=== PATIENT | female | born 1955 | race Caucasian/White ===

== ENCOUNTER 2018-05-22 00:51 | Outpatient (CLI) | payer MEDICAID ==
[~2018-05-22 00:51] MED LIST: ASPI-611 PO; LEVO75TA PO; LORA10TA65 PO; LOSA25TA96 PO
== END 2018-05-22 23:59 | disposition home or self-care (01) ==
LOC: DIABETIC 00:51
PROVIDERS: ATTEND Physician Assistant
DX: E11.9 Type 2 diabetes mellitus without complications (principal)
CPT/HCPCS: G0108

== ENCOUNTER 2018-06-05 02:47 | Outpatient (CLI) | payer MEDICARE, MEDICAID | END 2018-06-05 23:59 | disposition home or self-care (01) | LOC: DIABETIC 02:47 | PROVIDERS: ATTEND Physician Assistant | DX: E11.65 Type 2 diabetes mellitus with hyperglycemia (principal); I10 Essential (primary) hypertension; Z79.82 Long term (current) use of aspirin | CPT/HCPCS: G0108 ==

== ENCOUNTER 2018-06-29 03:14 | Outpatient (CLI) | payer MEDICARE, MEDICAID | END 2018-06-29 23:59 | disposition home or self-care (01) | LOC: DIABETIC 03:14 | PROVIDERS: ATTEND Physician Assistant | DX: E11.65 Type 2 diabetes mellitus with hyperglycemia (principal); I10 Essential (primary) hypertension; Z79.82 Long term (current) use of aspirin; Z85.828 Personal history of other malignant neoplasm of skin | CPT/HCPCS: G0108 ==

== ENCOUNTER 2018-10-02 03:58 | Outpatient (CLI) | payer MEDICARE, MEDICAID | END 2018-10-02 23:59 | disposition home or self-care (01) | LOC: DIABETIC 03:58 | PROVIDERS: ATTEND Internal Medicine Endocrinology, Diabetes & Metabolism | DX: E10.65 Type 1 diabetes mellitus with hyperglycemia (principal); I10 Essential (primary) hypertension; Z79.82 Long term (current) use of aspirin; Z79.4 Long term (current) use of insulin | CPT/HCPCS: G0108 ==

== ENCOUNTER 2019-01-03 01:17 | Outpatient (CLI) | payer MEDICARE, MEDICAID | END 2019-01-03 23:59 | disposition home or self-care (01) | LOC: DIABETIC 01:17 | PROVIDERS: ATTEND Internal Medicine Endocrinology, Diabetes & Metabolism | DX: E10.9 Type 1 diabetes mellitus without complications (principal); I10 Essential (primary) hypertension; Z88.6 Allergy status to analgesic agent | CPT/HCPCS: G0108 ==

== ENCOUNTER 2019-04-04 02:03 | Outpatient (CLI) | payer MEDICARE, MEDICAID | END 2019-04-04 23:59 | disposition home or self-care (01) | LOC: DIABETIC 02:03 | PROVIDERS: ATTEND Internal Medicine Endocrinology, Diabetes & Metabolism | DX: E10.65 Type 1 diabetes mellitus with hyperglycemia (principal); I10 Essential (primary) hypertension; Z79.4 Long term (current) use of insulin | CPT/HCPCS: G0108 ==

== ENCOUNTER 2019-07-04 01:06 | Outpatient (CLI) | payer MEDICARE, MEDICAID | END 2019-07-04 23:59 | disposition home or self-care (01) | LOC: DIABETIC 01:06 | PROVIDERS: ATTEND Internal Medicine Endocrinology, Diabetes & Metabolism | DX: E10.65 Type 1 diabetes mellitus with hyperglycemia (principal); I10 Essential (primary) hypertension; Z79.4 Long term (current) use of insulin | CPT/HCPCS: G0108 ==

== ENCOUNTER 2019-11-25 01:27 | Emergency (ER) | payer MEDICARE, MEDICAID ==
[~2019-11-25] VITALS: Ht 157.5 cm; Wt 65.5 kg
[2019-11-25] MEDS ORDERED: epiNEPHrine 1 mg/ml inj SQ STA (01:43)
[2019-11-25] MEDS ORDERED: predniSONE 20 mg tablet PO ONE (01:45)
[2019-11-25] MEDS ORDERED: hydrOXYzine 25 MG tablet PO ONE (01:45)
[2019-11-25] MEDS ORDERED: PRED20TA PO (02:44)
[2019-11-25 03:08] VITALS: BP 120/50
[2019-11-26] MEDS ORDERED: HYDR-3686 PO (01:53)
== END 2019-11-25 03:11 | disposition home or self-care (01) ==
LOC: ER 01:27
DX: T78.40XA Allergy, unspecified, initial encounter (principal); L50.9 Urticaria, unspecified; I10 Essential (primary) hypertension; F10.99 Alcohol use, unspecified with unspecified alcohol-induced disorder; Y90.9 Presence of alcohol in blood, level not specified; Z88.6 Allergy status to analgesic agent; Z79.82 Long term (current) use of aspirin; Z79.899 Other long term (current) drug therapy; X58.XXXA Exposure to other specified factors, initial encounter
CPT/HCPCS: 82948; 96372; 99283; J0171; J7512; Z7610

== ENCOUNTER 2019-11-26 00:58 | Emergency (ER) | payer MEDICARE, MEDICAID ==
[~2019-11-26] VITALS: Ht 156.2 cm; Wt 65.5 kg
[~2019-11-26 00:58] MED LIST changes: +PRED20TA PO
[2019-11-26 01:02] VITALS: BP 148/74
[2019-11-26] MEDS ORDERED: epiNEPHrine 1 mg/ml inj IM STA (01:19)
[2019-11-26] MEDS ORDERED: HYDR-3686 PO (01:53)
== END 2019-11-26 02:04 | disposition home or self-care (01) ==
LOC: ER 00:58
DX: R21 Rash and other nonspecific skin eruption (principal); T78.40XA Allergy, unspecified, initial encounter; I10 Essential (primary) hypertension; Z88.6 Allergy status to analgesic agent; Z79.82 Long term (current) use of aspirin; Z79.899 Other long term (current) drug therapy; Y92.89 Other specified places as the place of occurrence of the external cause
CPT/HCPCS: 96372; 99283; J0171

== ENCOUNTER 2019-11-27 01:57 | Emergency (ER) | payer MEDICARE, MEDICAID ==
[~2019-11-27] VITALS: Ht 154.9 cm; Wt 65.5 kg
[~2019-11-27 01:57] MED LIST changes: +HYDR-3686 PO
[2019-11-27] MEDS ORDERED: methylPREDNISolone sod succ 125mg/2ml vial IM ONE (02:05)
[2019-11-27] MEDS ORDERED: diphenhydrAMINE 25mg capsule PO ONE (02:05)
[2019-11-27 02:16] VITALS: BP 153/62
== END 2019-11-27 02:18 | disposition home or self-care (01) ==
LOC: ER 01:58
DX: L50.8 Other urticaria (principal); T78.40XA Allergy, unspecified, initial encounter; I10 Essential (primary) hypertension; Z88.1 Allergy status to other antibiotic agents; Z88.6 Allergy status to analgesic agent; Z79.82 Long term (current) use of aspirin; Z79.899 Other long term (current) drug therapy; Y92.89 Other specified places as the place of occurrence of the external cause
CPT/HCPCS: 96372; 99283; J2930; Q0163

== ENCOUNTER 2020-12-19 10:53 | Emergency (ER) | payer MEDICARE, MEDICAID ==
[~2020-12-19] VITALS: Ht 154.9 cm; Wt 70.0 kg
[~2020-12-19 10:53] MED LIST changes: -HYDR-3686 PO; -PRED20TA PO
== END 2020-12-19 12:31 | disposition home or self-care (01) ==
LOC: ER 10:54
DX: R53.83 Other fatigue (principal); I10 Essential (primary) hypertension; Z20.822 Contact with and (suspected) exposure to COVID-19; Z85.9 Personal history of malignant neoplasm, unspecified; Z72.89 Other problems related to lifestyle; Z88.1 Allergy status to other antibiotic agents; Z88.6 Allergy status to analgesic agent; Z79.82 Long term (current) use of aspirin; Z79.899 Other long term (current) drug therapy
CPT/HCPCS: 36415; 87635; 99283

== ENCOUNTER 2022-01-01 06:35 | Emergency (ER) | payer MEDICARE, MEDICAID ==
[~2022-01-01] VITALS: Ht 154.9 cm; Wt 65.5 kg
[2022-01-01] MEDS ORDERED: morphine 4 MG/ML inj SYRINge IV PRN (07:10)
[2022-01-01] MEDS ORDERED: normal saline 1000ML IV soln IVB ONE (07:10)
[2022-01-01] MEDS ORDERED: ondansetron/PF 4mg/2ml inj IV ONE (07:10)
[2022-01-01 07:16] LABS: BASOPHILS % (AUTO) 0.7 % (0-1); EOSINOPHILS # (AUTO) 0.1 X10'3 (0-0.9); HEMATOCRIT 39.2 % (35.0-45.0); HEMOGLOBIN 12.9 g/dl (12.0-16.0); LYMPHOCYTES # (AUTO) 1.3 X10'3 (1.1-4.8); LYMPHOCYTES % (AUTO) 20.7 % (21-51); MEAN CORPUSCULAR HEMOGLOBIN 29.6 PG (27.0-31.0); MEAN CORPUSCULAR VOLUME 89.6 FL (78-98); MEAN PLATELET VOLUME 8.1 FL (7.4-10.4); MONOCYTES # (AUTO) 0.5 X10'3 (0-0.9); NEUTROPHILS # (AUTO) 4.3 X10'3 (1.8-7.7); NEUTROPHILS % (AUTO) 69.6 % (42-75); PLATELET COUNT 246 X10'3 (140-440); RED BLOOD COUNT 4.38 X10'6 (4.20-5.60); RED CELL DISTRIBUTION WIDTH 13.4 % (11.5-14.5); WHITE BLOOD COUNT 6.1 X10'3 (4.5-11.0)
[2022-01-01 07:34] LABS: ALANINE AMINOTRANSFERASE 25 U/L (12-78); ALBUMIN 3.4 G/DL (3.4-5.0); ALBUMIN/GLOBULIN RATIO 0.9 (1.1-1.5); ALKALINE PHOSPHATASE 53 IU/L (46-116); ANION GAP 8 (8-16); ASPARTATE AMINO TRANSFERASE 18 U/L (10-37); BILIRUBIN,TOTAL 0.5 MG/DL (0.1-1.0); BLOOD UREA NITROGEN 9 MG/DL (7-18); CALCIUM 8.3 MG/DL (8.5-10.1); CHLORIDE 105 MMOL/L (99-107); GLUCOSE 211 MG/DL (70-104); LIPASE 59 U/L (73-393); SODIUM 141 MMOL/L (135-145); TOTAL CARBON DIOXIDE 28.4 MMOL/L (24-32); eGFR 62 ML/MIN
[2022-01-01 08:30] LABS: CLARITY,URINE CLOUDY (Clear); COLOR,URINE YELLOW (Yellow); GLUCOSE, URINE NEGATIVE (Neg); KETONES,URINE 15 mg/dl (Neg); LEUKOCYTE ESTERASE ,URINE MODERATE (Neg); NITRITES, URINE POSITIVE (Neg); OCCULT BLOOD,URINE SMALL (Neg); PROTEIN,URINE NEGATIVE (Neg); UROBILINOGEN,URINE 0.2 E.U/dL (0.2-1.0)
[2022-01-01 08:33] LABS: UA COLLECTION TYPE CLN CATCH MIDSTREAM
[2022-01-01 08:37] LABS: BACTERIA,URINE 3+ /HPF (Neg); SQUAMOUS EPITHELIAL CELL,UR FEW /LPF (FEW); WBC CLUMPS,URINE MANY /HPF (NEGATIVE); WBC,URINE TNTC /HPF (0-4)
[2022-01-01 08:38] LABS: MUCUS STRANDS FEW /LPF (Neg); RBC,URINE 0-2 /HPF (0-2)
[2022-01-01 09:07] VITALS: BP 127/64
[2022-01-01] MEDS ORDERED: acetaminophen 325mg tablet PO ONE (11:10)
[2022-01-01] MEDS ORDERED: SULF1TAB49 PO (11:10)
[2022-01-01] MEDS ORDERED: sulfamethoxazole/trimethoprim DS (800/160mg) tablet PO ONE (11:10)
[2022-01-11 17:27] LABS: OCCULT BLOOD STOOL POSITIVE (Neg)
== END 2022-01-01 11:30 | disposition home or self-care (01) ==
LOC: ER 06:36
DX: R10.32 Left lower quadrant pain (principal); K62.5 Hemorrhage of anus and rectum; Z85.820 Personal history of malignant melanoma of skin; I10 Essential (primary) hypertension; Z87.01 Personal history of pneumonia (recurrent); Z87.891 Personal history of nicotine dependence; Z72.89 Other problems related to lifestyle; Z88.1 Allergy status to other antibiotic agents; Z88.8 Allergy status to other drugs, medicaments and biological substances; Z79.82 Long term (current) use of aspirin; Z79.899 Other long term (current) drug therapy
CPT/HCPCS: 36415; 74176; 80053; 81001; 83605; 83690; 84484; 85025; 86885; 86900; 86901; 87077; 87088; 87186; 96361; 96374; 99284; J2405; J7030; 82272

== ENCOUNTER 2022-01-01 14:16 | Emergency (ER) | payer MEDICARE, MEDICAID ==
[~2022-01-01] VITALS: Ht 154.9 cm; Wt 65.4 kg
[~2022-01-01 14:16] MED LIST changes: +SULF1TAB49 PO
[2022-01-01 14:54] VITALS: BP 122/67
== END 2022-01-01 17:05 | disposition left against medical advice (07) ==
LOC: ER 14:17
DX: K62.5 Hemorrhage of anus and rectum (principal); Z53.21 Procedure and treatment not carried out due to patient leaving prior to being seen by health care provider

== ENCOUNTER 2022-01-02 20:54 | Inpatient (IN) | payer MEDICARE, MEDICAID ==
[~2022-01-02] VITALS: Ht 154.9 cm; Wt 65.5 kg
[2022-01-02] MEDS ORDERED: ondansetron/PF 4mg/2ml inj IV ONE (21:40)
[2022-01-02] MEDS ORDERED: normal saline 1000ml 1,000 ML IV ONE (21:40)
[2022-01-02 22:04] LABS: BASOPHILS % (AUTO) 0.4 % (0-1); EOSINOPHILS % (AUTO) 0.1 % (0-6); HEMATOCRIT 35.7 % (35.0-45.0); HEMOGLOBIN 11.8 g/dl (12.0-16.0); LYMPHOCYTES # (AUTO) 0.3 X10'3 (1.1-4.8); LYMPHOCYTES % (AUTO) 4.8 % (21-51); MEAN CORPUSCULAR HEMOGLOBIN 29.9 PG (27.0-31.0); MEAN CORPUSCULAR HGB CONC 33.1 g/dL (33.0-36.5); MEAN CORPUSCULAR VOLUME 90.1 FL (78-98); MEAN PLATELET VOLUME 8.5 FL (7.4-10.4); MONOCYTES # (AUTO) 0.6 X10'3 (0-0.9); MONOCYTES % (AUTO) 8.9 % (2-12); NEUTROPHILS # (AUTO) 5.9 X10'3 (1.8-7.7); NEUTROPHILS % (AUTO) 85.8 % (42-75); PLATELET COUNT 152 X10'3 (140-440); RED BLOOD COUNT 3.96 X10'6 (4.20-5.60); RED CELL DISTRIBUTION WIDTH 13.3 % (11.5-14.5); WHITE BLOOD COUNT 6.9 X10'3 (4.5-11.0)
[2022-01-02 22:16] LABS: ALANINE AMINOTRANSFERASE 102 U/L (12-78); ALBUMIN 2.8 G/DL (3.4-5.0); ALBUMIN/GLOBULIN RATIO 0.8 (1.1-1.5); ALKALINE PHOSPHATASE 59 IU/L (46-116); ANION GAP 13 (8-16); ASPARTATE AMINO TRANSFERASE 120 U/L (10-37); BILIRUBIN,TOTAL 0.6 MG/DL (0.1-1.0); BLOOD UREA NITROGEN 13 MG/DL (7-18); BUN/CREATININE RATIO 8.2 (6.6-38.0); CALCIUM 8.4 MG/DL (8.5-10.1); CHLORIDE 98 MMOL/L (99-107); CREATININE 1.59 MG/DL (0.40-0.90); GLUCOSE 242 MG/DL (70-104); POTASSIUM 3.7 MMOL/L (3.5-5.1); SODIUM 131 MMOL/L (135-145); TOTAL CARBON DIOXIDE 20.1 MMOL/L (24-32); TOTAL PROTEIN 6.2 G/DL (6.4-8.2); eGFR 32 ML/MIN
[2022-01-02 22:43] LABS: LIPASE 59 U/L (73-393)
[2022-01-02] MEDS ORDERED: ciprofloxacin lact 400MG/200ML 200 ML IV STA (22:59)
[2022-01-02] MEDS ORDERED: potassium Cl 20 mEq SR tablet PO PRN ×2 (23:15)
[2022-01-02] MEDS ORDERED: potassium CL 10mEq/100ml bag 100 ML IV PRN (23:15)
[2022-01-02] MEDS ORDERED: magnesium Cl slow-release 64mg tablet PO PRN (23:15)
[2022-01-02] MEDS ORDERED: metoclopramide 5 mg/ml inj IV PRN (23:15)
[2022-01-02] MEDS ORDERED: magnesium hydroxide 30ml (MOM) UD suspension PO PRN (23:15)
[2022-01-02] MEDS ORDERED: mag hydrox/Alum hydrox/simeth 30ml oral suspension PO PRN (23:15)
[2022-01-02] MEDS ORDERED: ondansetron/PF 4mg/2ml inj IV PRN (23:15)
[2022-01-02] MEDS ORDERED: morphine 2 MG/ML inj. syringe IV PRN (23:15)
[2022-01-02] MEDS ORDERED: magnesium 2GM in 50ml NS 50 ML IV PRN (23:15)
[2022-01-02] MEDS ORDERED: acetaminophen 325mg tablet PO PRN (23:15)
[2022-01-02] MEDS ORDERED: magnesium 4gm in 100ml NS 100 ML IV PRN (23:15)
[2022-01-02 23:38] LABS: MAGNESIUM 1.7 MG/DL (1.5-2.4)
[2022-01-03] MEDS ORDERED: MESSAGE TO PHARMACY PO ONE (00:25)
[2022-01-03] MEDS ORDERED: glucagon, human recombinant 1mg kit SUBCUT PRN (00:25)
[2022-01-03] MEDS ORDERED: dextrose 50%-water 50ml dispensing syringe IV PRN ×2 (00:25)
[2022-01-03] MEDS ORDERED: DEXTROSE 15 GM of carb/4 tabs (each vial/BOTTLE has 4 tablets) PO PRN ×2 (00:25)
[2022-01-03] MEDS: morphine 2 MG/ML inj. syringe IV PRN ×4 (01:44→22:18)
[2022-01-03] MEDS ORDERED: insulin Lispro (HumaLOG) vial - multi-dose SQ ONE (02:00)
[2022-01-03] MEDS: sodium chloride 0.45% 1,000 ML IV SCH ×3 (02:19→16:26)
[2022-01-03 04:26] LABS: ALANINE AMINOTRANSFERASE 86 U/L (12-78); ALBUMIN 2.4 G/DL (3.4-5.0); ALBUMIN/GLOBULIN RATIO 0.7 (1.1-1.5); ALKALINE PHOSPHATASE 56 IU/L (46-116); ANION GAP 12 (8-16); ASPARTATE AMINO TRANSFERASE 82 U/L (10-37); BILIRUBIN,TOTAL 0.4 MG/DL (0.1-1.0); BLOOD UREA NITROGEN 9 MG/DL (7-18); BUN/CREATININE RATIO 7.3 (6.6-38.0); CALCIUM 7.6 MG/DL (8.5-10.1); CHLORIDE 103 MMOL/L (99-107); CREATININE 1.24 MG/DL (0.40-0.90); GLUCOSE 193 MG/DL (70-104); POTASSIUM 3.7 MMOL/L (3.5-5.1); SODIUM 134 MMOL/L (135-145); TOTAL CARBON DIOXIDE 19.5 MMOL/L (24-32); TOTAL PROTEIN 5.7 G/DL (6.4-8.2); eGFR 43 ML/MIN
[2022-01-03 04:30] LABS: MAGNESIUM 1.8 MG/DL (1.5-2.4)
[2022-01-03 06:07] LABS: CLARITY,URINE CLEAR (Clear); COLOR,URINE YELLOW (Yellow); GLUCOSE, URINE 500 mg/dl (Neg); KETONES,URINE >=80 mg/dl (Neg); LEUKOCYTE ESTERASE ,URINE NEGATIVE (Neg); NITRITES, URINE NEGATIVE (Neg); OCCULT BLOOD,URINE TRACE-INTACT (Neg); PH,URINE 5.5 (4.8-8.0); PROTEIN,URINE NEGATIVE (Neg); UA COLLECTION TYPE CLN CATCH MIDSTREAM; UROBILINOGEN,URINE 0.2 E.U/dL (0.2-1.0)
[2022-01-03 06:15] LABS: SQUAMOUS EPITHELIAL CELL,UR FEW /LPF (FEW)
[2022-01-03 06:18] LABS: BACTERIA,URINE FEW /HPF (Neg); RBC,URINE 0-2 /HPF (0-2)
[2022-01-03] MEDS: levoTHYROXINE 75mcg tablet PO SCH (07:11)
--- NOTE | 2022-01-03 07:13 | NUR ---
pt asking for something to drink. gave her glass of water with her synthroid.
[2022-01-03 07:20] LABS: BASOPHILS % (AUTO) 0.2 % (0-1); EOSINOPHILS % (AUTO) 0.4 % (0-6); HEMATOCRIT 34.8 % (35.0-45.0); HEMOGLOBIN 11.6 g/dl (12.0-16.0); LYMPHOCYTES # (AUTO) 0.4 X10'3 (1.1-4.8); LYMPHOCYTES % (AUTO) 6.8 % (21-51); MEAN CORPUSCULAR HEMOGLOBIN 29.7 PG (27.0-31.0); MEAN CORPUSCULAR HGB CONC 33.3 g/dL (33.0-36.5); MEAN CORPUSCULAR VOLUME 89.2 FL (78-98); MEAN PLATELET VOLUME 8.3 FL (7.4-10.4); MONOCYTES # (AUTO) 0.6 X10'3 (0-0.9); MONOCYTES % (AUTO) 10.6 % (2-12); NEUTROPHILS # (AUTO) 4.6 X10'3 (1.8-7.7); PLATELET COUNT 141 X10'3 (140-440); RED CELL DISTRIBUTION WIDTH 13.5 % (11.5-14.5); WHITE BLOOD COUNT 5.7 X10'3 (4.5-11.0)
[2022-01-03] MEDS: K and/or MAG REPLACEMENT MC SCH ×2 (08:00→20:00)
[2022-01-03] MEDS: losartan 25mg tablet PO SCH (08:20)
[2022-01-03] MEDS: loratadine 10mg tablet PO SCH (08:20)
[2022-01-03] MEDS: docusate sod 100mg capsule PO SCH ×2 (08:20→20:42)
[2022-01-03] MEDS: metroNIDAZOLE-Flagyl 500mg/NS 100 ML IV SCH ×2 (08:23→16:26)
--- NOTE | 2022-01-03 08:50 | NUR ---
gave report to julia martinez.
[2022-01-03] MEDS: ciprofloxacin lact 400MG/200ML 200 ML IV SCH ×2 (08:57→20:42)
[2022-01-03 09:24] LABS: HEMOGLOBIN A1C 8.1 % (4.5-6.2)
--- NOTE | 2022-01-03 09:35 | NUR ---
PT. TO ROOM 319A. PT. C/O OF SOME BACK PAIN BUT RECENTLY RECEIVED MS. REPOSITIONED PT. IN BED. AMBULATION TELE MONITOR PUT ON PT. UNTIL REPLACEMENT TELE COULD BE PLACED. BED LOW TO GROUND. PT. PROVIDED WITH WARM BLANKET. NO NEEDS AT THIS TIME.
[2022-01-03 10:00] VITALS: BP 108/46
--- NOTE | 2022-01-03 11:53 | NUR ---
PAGER ID: [phone] MESSAGE: Shannan Irene 319A Pt. requesting to be tested for COVID r/t temp, body aches, nausea, vomiting, diarrhea, and she is not vaccinated. Do you want to test her? Wendy [phone]
--- NOTE | 2022-01-03 11:56 | NUR ---
PAGER ID: [phone] MESSAGE: Shannan Irene 319A Pt. also wants to know why she has NPO diet? Wendy [phone]
[2022-01-03] MEDS ORDERED: LOVA40TA2 PO (12:23)
[2022-01-03] MEDS ORDERED: LEVO75TA7 PO (12:23)
[2022-01-03] MEDS ORDERED: LANTUS SQ (12:23)
[2022-01-03] MEDS ORDERED: LOSA25TA41 PO (12:23)
[2022-01-03] MEDS ORDERED: PRE5T PO (12:23)
[2022-01-03] MEDS ORDERED: CHOL20002 PO (12:23)
[2022-01-03] MEDS ORDERED: INSU100I52 SQ (12:23)
--- NOTE | 2022-01-03 12:41 | NUR ---
PAGER ID: [phone] MESSAGE: linsey Irene 319A Critical value: 12 hour trop positive at 66. Wendy [id number]
[2022-01-03] MEDS: insulin Lispro (HumaLOG) vial - multi-dose SQ SCH (14:02)
[2022-01-03 15:16] VITALS: BP 92/48
--- NOTE | 2022-01-03 15:21 | NUR ---
PAGER ID: [phone] MESSAGE: MARCO A DEWEY 319A NO ANTICOAG ON BOARD. YOU WANT ONE? ALSO PT. BP 92/48 hr 93. wANT LACTIC AND PROCAL? Lala [phone]
--- NOTE | 2022-01-03 16:44 | NUR ---
PAGER ID: [phone] MESSAGE: Shannan johns 319a bp still MAP 52, no bolus? Wendy [id number]
--- NOTE | 2022-01-03 16:45 | NUR ---
Hospitalist called back. Increasing fluids to 125ml /hr
[2022-01-03 18:00] VITALS: BP 96/33
--- NOTE | 2022-01-03 18:27 | NUR ---
Patient in room MED 319. I have received report from julia Nguyen and had the opportunity to ask questions and assume patient care.
--- NOTE | 2022-01-03 18:29 | NUR ---
Gave report to Anne RECINOS.
[2022-01-03] MEDS ORDERED: insulin glargine (Lantus) pen - multi-dose SQ SCH (21:00)
[2022-01-03 22:00] VITALS: BP 94/35
[2022-01-03 23:17] VITALS: BP 108/41
[2022-01-04] MEDS: metroNIDAZOLE-Flagyl 500mg/NS 100 ML IV SCH ×2 (00:03→10:11)
[2022-01-04 02:00] VITALS: BP 112/38
[2022-01-04] MEDS: morphine 2 MG/ML inj. syringe IV PRN ×2 (02:11→06:52)
[2022-01-04] MEDS: sodium chloride 0.45% 1,000 ML IV SCH (02:11)
[2022-01-04 06:00] VITALS: BP 109/40
--- NOTE | 2022-01-04 06:25 | NUR ---
Problems reprioritized. Patient report given, questions answered & plan of care reviewed with JORJE THURMAN.
[2022-01-04 06:28] LABS: ALANINE AMINOTRANSFERASE 58 U/L (12-78); ALBUMIN 2.2 G/DL (3.4-5.0); ALBUMIN/GLOBULIN RATIO 0.7 (1.1-1.5); ALKALINE PHOSPHATASE 47 IU/L (46-116); ANION GAP 11 (8-16); ASPARTATE AMINO TRANSFERASE 53 U/L (10-37); BILIRUBIN,TOTAL 0.4 MG/DL (0.1-1.0); BLOOD UREA NITROGEN 6 MG/DL (7-18); BUN/CREATININE RATIO 6.9 (6.6-38.0); CALCIUM 7.2 MG/DL (8.5-10.1); CHLORIDE 100 MMOL/L (99-107); CREATININE 0.87 MG/DL (0.40-0.90); GLUCOSE 184 MG/DL (70-104); MAGNESIUM 1.6 MG/DL (1.5-2.4); POTASSIUM 3.9 MMOL/L (3.5-5.1); SODIUM 129 MMOL/L (135-145); TOTAL CARBON DIOXIDE 17.7 MMOL/L (24-32); TOTAL PROTEIN 5.2 G/DL (6.4-8.2); eGFR 65 ML/MIN
[2022-01-04 06:33] LABS: BASOPHILS % (AUTO) 0.4 % (0-1); EOSINOPHILS # (AUTO) 0.2 X10'3 (0-0.9); EOSINOPHILS % (AUTO) 5.8 % (0-6); HEMATOCRIT 31.5 % (35.0-45.0); HEMOGLOBIN 10.4 g/dl (12.0-16.0); LYMPHOCYTES # (AUTO) 0.4 X10'3 (1.1-4.8); LYMPHOCYTES % (AUTO) 10.1 % (21-51); MEAN CORPUSCULAR HEMOGLOBIN 29.7 PG (27.0-31.0); MEAN CORPUSCULAR VOLUME 89.9 FL (78-98); MEAN PLATELET VOLUME 8.4 FL (7.4-10.4); MONOCYTES # (AUTO) 0.5 X10'3 (0-0.9); MONOCYTES % (AUTO) 11.8 % (2-12); NEUTROPHILS # (AUTO) 3.1 X10'3 (1.8-7.7); NEUTROPHILS % (AUTO) 71.9 % (42-75); PLATELET COUNT 124 X10'3 (140-440); RED BLOOD COUNT 3.51 X10'6 (4.20-5.60); RED CELL DISTRIBUTION WIDTH 13.7 % (11.5-14.5); WHITE BLOOD COUNT 4.2 X10'3 (4.5-11.0)
[2022-01-04] MEDS: levoTHYROXINE 75mcg tablet PO SCH (06:47)
[2022-01-04] MEDS: loratadine 10mg tablet PO SCH (08:00)
[2022-01-04] MEDS: K and/or MAG REPLACEMENT MC SCH (08:00)
[2022-01-04] MEDS ORDERED: levoTHYROXINE 75mcg tablet PO SCH (09:15)
[2022-01-04] MEDS ORDERED: losartan 25mg tablet PO SCH (09:15)
[2022-01-04] MEDS ORDERED: predniSONE 5mg tablet PO SCH (09:15)
[2022-01-04] MEDS: insulin Lispro (HumaLOG) vial - multi-dose SQ SCH (09:16)
[2022-01-04] MEDS: ciprofloxacin lact 400MG/200ML 200 ML IV SCH (09:22)
[2022-01-04] MEDS: losartan 25mg tablet PO SCH (09:22)
[2022-01-04] MEDS: docusate sod 100mg capsule PO SCH (09:22)
[2022-01-04 10:00] VITALS: BP 111/49
--- NOTE | 2022-01-04 11:43 | NUR ---
Diabetes consult: Noted pt w/ hx of DM, A1c 8.1. Provided pt w/ written and verbal DM education w/ RD contact info. Addendum: 01/04/22 at [address] Amended: Links added.
--- NOTE | 2022-01-04 13:22 | NUR ---
PAGE SENT PAGER ID: [phone] MESSAGE: 319A, MARCO A DEWEY, WAS THIS PT GOING TO DISCHARGE TODAY? THANK YOU, ALFREDO [id number]
[2022-01-04 14:00] VITALS: BP 140/60
[2022-01-04] MEDS ORDERED: CIPR-202 PO (15:56)
[2022-01-04] MEDS ORDERED: METR-159 PO (15:57)
--- NOTE | 2022-01-04 16:57 | NUR ---
patient discharged in wheelchair, piv removed
[2022-01-04] MEDS ORDERED: atorvastatin 10mg tablet PO SCH (21:00)
[2022-01-05] MEDS ORDERED: aspirin 81mg, enteric-coated 1 TAB TABLET.DR PO SCH (08:00)
[2022-01-05] MEDS ORDERED: cholecalciferol (vitamin D3) 1,000 unit (25mcg) tablet PO SCH (08:00)
== END 2022-01-04 16:40 | disposition home or self-care (01) | DRG 391 ==
LOC: ER 20:55 → ED HOLD 23:21 → MED 3N 01-03 09:49
PROVIDERS: ADMIT Internal Medicine; ATTEND Internal Medicine
DX: A09 Infectious gastroenteritis and colitis, unspecified (principal); N17.0 Acute kidney failure with tubular necrosis; E87.1 Hypo-osmolality and hyponatremia; N39.0 Urinary tract infection, site not specified; E87.2 Acidosis; I10 Essential (primary) hypertension; E03.9 Hypothyroidism, unspecified; R79.89 Other specified abnormal findings of blood chemistry; E11.9 Type 2 diabetes mellitus without complications; Z85.820 Personal history of malignant melanoma of skin; Z88.1 Allergy status to other antibiotic agents; Z88.6 Allergy status to analgesic agent; Z79.899 Other long term (current) drug therapy; Z79.82 Long term (current) use of aspirin; Z87.440 Personal history of urinary (tract) infections; Z87.01 Personal history of pneumonia (recurrent); Z90.49 Acquired absence of other specified parts of digestive tract
CPT/HCPCS: 36415; 71045; 80053; 81001; 82948; 83036; 83605; 83690; 83735; 84443; 84484; 85025; 87040; 87081; 87088; 93005; 96360; 99285; G0378; J0744; J1815; J2270; J2405; J3490; J7030; J7512

== ENCOUNTER 2022-04-19 07:37 | Day surgery (SDC) | payer MEDICARE, MEDICAID ==
[~2022-04-19] VITALS: Ht 154.9 cm; Wt 65.4 kg
[~2022-04-19 07:37] MED LIST changes: +CHOL20002 PO; +INSU100I52 SQ; +LANTUS SQ; -LEVO75TA PO; +LEVO75TA7 PO; -LORA10TA65 PO; +LOSA25TA41 PO; -LOSA25TA96 PO; +LOVA40TA2 PO; +PRE5T PO; -SULF1TAB49 PO
[2022-04-19 08:00] VITALS: BP 170/76
[2022-04-19] MEDS ORDERED: fentaNYL/PF 50MCG/1 ML 2ML syringe ONE (08:25)
[2022-04-19] MEDS ORDERED: MIDAZolam 1 MG/ML 5ML VIAL ONE (08:25)
[2022-04-19 10:30] VITALS: BP 120/68
[2022-04-19 10:40] VITALS: BP 112/57
[2022-04-19 10:50] VITALS: BP 123/58
== END 2022-04-19 11:10 | disposition home or self-care (01) ==
LOC: GI LAB 07:37
PROVIDERS: ATTEND Internal Medicine Gastroenterology
DX: Z12.11 Encounter for screening for malignant neoplasm of colon (principal); K57.30 Diverticulosis of large intestine without perforation or abscess without bleeding; K64.8 Other hemorrhoids; K55.20 Angiodysplasia of colon without hemorrhage; E11.9 Type 2 diabetes mellitus without complications; I10 Essential (primary) hypertension; Z87.891 Personal history of nicotine dependence; Z79.899 Other long term (current) drug therapy; Z88.8 Allergy status to other drugs, medicaments and biological substances
CPT/HCPCS: 45388; 82948; 99153; G0500; J2250; J3010; J7030; Z7512; 44391; 45382; 99152; A4620

== ENCOUNTER 2023-01-20 20:19 | Emergency (ER) | payer MEDICARE, MEDICAID ==
[~2023-01-20] VITALS: Ht 154.9 cm; Wt 62.7 kg
[~2023-01-20 20:19] MED LIST changes: -ASPI-611 PO
[2023-01-20 21:35] LABS: BASOPHILS # (AUTO) 0.1 X10'3 (0-0.2); EOSINOPHILS # (AUTO) 0.1 X10'3 (0-0.9); EOSINOPHILS % (AUTO) 1.6 % (0-6); HEMATOCRIT 41.2 % (35.0-45.0); HEMOGLOBIN 13.4 g/dl (12.0-16.0); LYMPHOCYTES # (AUTO) 1.1 X10'3 (1.1-4.8); LYMPHOCYTES % (AUTO) 16.4 % (21-51); MEAN CORPUSCULAR HEMOGLOBIN 29.7 PG (27.0-31.0); MEAN CORPUSCULAR HGB CONC 32.5 g/dL (33.0-36.5); MEAN CORPUSCULAR VOLUME 91.5 FL (78-98); MEAN PLATELET VOLUME 8.6 FL (7.4-10.4); MONOCYTES # (AUTO) 0.3 X10'3 (0-0.9); MONOCYTES % (AUTO) 5.2 % (2-12); NEUTROPHILS # (AUTO) 4.9 X10'3 (1.8-7.7); NEUTROPHILS % (AUTO) 75.8 % (42-75); PLATELET COUNT 241 X10'3 (140-440); RED CELL DISTRIBUTION WIDTH 14.1 % (11.5-14.5); WHITE BLOOD COUNT 6.5 X10'3 (4.5-11.0)
[2023-01-20 21:49] LABS: ALANINE AMINOTRANSFERASE 21 U/L (12-78); ALBUMIN 3.7 G/DL (3.4-5.0); ALBUMIN/GLOBULIN RATIO 1.1 (1.1-1.5); ALKALINE PHOSPHATASE 62 IU/L (46-116); AMYLASE 39 U/L (25-115); ANION GAP 7 (8-16); ASPARTATE AMINO TRANSFERASE 22 U/L (10-37); BILIRUBIN,TOTAL 0.4 MG/DL (0.1-1.0); BLOOD UREA NITROGEN 13 MG/DL (7-18); CALCIUM 9.1 MG/DL (8.5-10.1); CHLORIDE 101 MMOL/L (99-107); CREATININE 0.93 MG/DL (0.40-0.90); GLUCOSE 234 MG/DL (70-104); LIPASE 98 U/L (73-393); POTASSIUM 3.7 MMOL/L (3.5-5.1); SODIUM 137 MMOL/L (135-145); TOTAL CARBON DIOXIDE 29.4 MMOL/L (24-32); TOTAL PROTEIN 7.1 G/DL (6.4-8.2); eGFR 60 ML/MIN
[2023-01-20 22:52] LABS: COLOR,URINE YELLOW (Yellow); GLUCOSE, URINE 250 mg/dl (Neg); KETONES,URINE 40 mg/dl (Neg); LEUKOCYTE ESTERASE ,URINE TRACE (Neg); NITRITES, URINE NEGATIVE (Neg); OCCULT BLOOD,URINE NEGATIVE (Neg); PROTEIN,URINE NEGATIVE (Neg); UROBILINOGEN,URINE 0.2 E.U/dL (0.2-1.0)
[2023-01-20 22:57] LABS: CLARITY,URINE SLIGHTLY CLOUDY (Clear); MUCUS STRANDS MODERATE /LPF (Neg); UA COLLECTION TYPE CLN CATCH MIDSTREAM
[2023-01-20 22:58] LABS: SQUAMOUS EPITHELIAL CELL,UR MANY /LPF (FEW); WBC CLUMPS,URINE MODERATE /HPF (NEGATIVE)
[2023-01-20 22:59] LABS: BACTERIA,URINE FEW /HPF (Neg); TRANSITIONAL EPI CELLS,URINE MODERATE /HPF; WBC,URINE 20-30 /HPF (0-4)
--- NOTE | 2023-01-21 04:03 | NUR ---
Pt sleeping. Respirations observed. Pt awaiting CT scan results. Will continue to monitor.
[2023-01-21 05:10] VITALS: BP 142/52
--- NOTE | 2023-01-21 05:11 | NUR ---
Pt VS monitor malfunctioned. Data lost.
[2023-01-21] MEDS ORDERED: POLY119P2 PO (05:39)
[2023-01-21] MEDS ORDERED: MAGN296S68 PO (05:39)
== END 2023-01-21 05:55 | disposition home or self-care (01) ==
LOC: ER 20:20
DX: K59.00 Constipation, unspecified (principal); I10 Essential (primary) hypertension; E11.9 Type 2 diabetes mellitus without complications; Z88.1 Allergy status to other antibiotic agents; Z88.6 Allergy status to analgesic agent; Z88.8 Allergy status to other drugs, medicaments and biological substances
CPT/HCPCS: 36415; 74176; 80053; 81001; 82150; 83690; 85025; 99284

== ENCOUNTER 2023-04-08 18:57 | Emergency (ER) | payer MEDICARE, MEDICAID ==
[~2023-04-08] VITALS: Ht 154.9 cm; Wt 62.0 kg
[~2023-04-08 18:57] MED LIST changes: +ATOR10TA PO; -INSU100I52 SQ; +INSU100I8 SQ; +INSU200I4 SQ; -LANTUS SQ; -LOVA40TA2 PO; +POLY17PO10 PO; +SODI1TAB2 PO
[2023-04-08 21:33] LABS: EOSINOPHILS # (AUTO) 0.1 X10'3 (0-0.9); EOSINOPHILS % (AUTO) 2.7 % (0-6); HEMOGLOBIN 12.4 g/dl (12.0-16.0); MEAN PLATELET VOLUME 7.8 FL (7.4-10.4); MONOCYTES # (AUTO) 0.6 X10'3 (0-0.9); WHITE BLOOD COUNT 2.4 X10'3 (4.5-11.0)
[2023-04-08 21:35] LABS: BASOPHILS % (AUTO) 0.5 % (0-1); HEMATOCRIT 35.8 % (35.0-45.0); LYMPHOCYTES # (AUTO) 0.6 X10'3 (1.1-4.8); LYMPHOCYTES % (AUTO) 23.3 % (21-51); MEAN CORPUSCULAR HGB CONC 34.7 g/dL (33.0-36.5); MEAN CORPUSCULAR VOLUME 89.3 FL (78-98); MONOCYTES % (AUTO) 25.5 % (2-12); NEUTROPHILS # (AUTO) 1.2 X10'3 (1.8-7.7); PLATELET COUNT 226 X10'3 (140-440); RED BLOOD COUNT 4.01 X10'6 (4.20-5.60); RED CELL DISTRIBUTION WIDTH 12.9 % (11.5-14.5)
[2023-04-08 21:38] LABS: ALANINE AMINOTRANSFERASE 41 U/L (12-78); ALBUMIN 3.2 G/DL (3.4-5.0); ALBUMIN/GLOBULIN RATIO 1.1 (1.1-1.5); ALKALINE PHOSPHATASE 90 IU/L (46-116); ANION GAP 4 (8-16); ASPARTATE AMINO TRANSFERASE 39 U/L (10-37); BILIRUBIN,TOTAL 0.5 MG/DL (0.1-1.0); BLOOD UREA NITROGEN 5 MG/DL (7-18); BUN/CREATININE RATIO 8.1 (10.0-20.0); CALCIUM 8.9 MG/DL (8.5-10.1); CHLORIDE 95 MMOL/L (99-107); CREATININE 0.62 MG/DL (0.40-0.90); GLUCOSE 86 MG/DL (70-104); POTASSIUM 3.6 MMOL/L (3.5-5.1); SODIUM 127 MMOL/L (135-145); TOTAL CARBON DIOXIDE 27.6 MMOL/L (24-32); eGFR > 90 ML/MIN
[2023-04-08] MEDS ORDERED: normal saline 1000ml 1,000 ML IV ONE (22:00)
[2023-04-08 22:06] LABS: TOTAL CELLS COUNTED 100
[2023-04-08 22:07] LABS: PLATELET ESTIMATE NORMAL
[2023-04-08 22:50] LABS: CREATINE KINASE 55 U/L (26-192); MAGNESIUM 1.7 MG/DL (1.5-2.4)
[2023-04-08 22:57] VITALS: BP 142/66
== END 2023-04-08 23:37 | disposition home or self-care (01) ==
LOC: ER 18:58
DX: E87.1 Hypo-osmolality and hyponatremia (principal); E87.6 Hypokalemia; I10 Essential (primary) hypertension; E11.9 Type 2 diabetes mellitus without complications; Z88.1 Allergy status to other antibiotic agents; Z88.6 Allergy status to analgesic agent
CPT/HCPCS: 36415; 80053; 82550; 82948; 83735; 85007; 85025; 96360; 99283; J7030